=== PATIENT | male | born 1970 | race Caucasian/White ===

== ENCOUNTER → 2019-11-19 13:18 | Outpatient (BNVA) | payer SELFPAY | PROVIDERS: Visit Provider Nurse Practitioner Family | DX: E11.65 Type 2 diabetes mellitus with hyperglycemia (principal); F41.9 Anxiety disorder, unspecified; F32.9 Major depressive disorder, single episode, unspecified; I10 Essential (primary) hypertension; E78.5 Hyperlipidemia, unspecified; B37.0 Candidal stomatitis; N52.9 Male erectile dysfunction, unspecified; Z79.4 Long term (current) use of insulin; Z91.19 Patient's noncompliance with other medical treatment and regimen | CPT/HCPCS: 80053; 80061; 81001; 82044; 83036; 84403; 84443; 85025 ==